=== PATIENT | female | born 1970 | race Caucasian/White ===

== ENCOUNTER → 2017-02-05 | Outpatient (CLI) | payer SELFPAY ==
--- NOTE | 2017-02-05 14:46 | MM ---
Reason for exam: screening (asymptomatic). Baseline mammogram. History: Patient is nulliparous. Family history of breast cancer in maternal grandmother at age 70. Took hormonal contraceptives for 1 year. Physical Findings: Nurse did not find any significant physical abnormalities on exam. MG 3D Screening Mammo W/Cad Bilateral CC and MLO view(s) were taken. The breast tissue is heterogeneously dense. This may lower the sensitivity of mammography. There is no discrete abnormality. These results were verbally communicated with the patient and result sheet given to the patient on 02/05/17. ASSESSMENT: Negative, BI-RAD 1 RECOMMENDATION: Routine screening mammogram of both breasts in 1 year.
== END | disposition home or self-care (01) ==
LOC: RADMAMWWP 13:46
PROVIDERS: ATTEND Family Medicine
DX: Z12.31 Encounter for screening mammogram for malignant neoplasm of breast (principal)
CPT/HCPCS: 77063; G0202

== ENCOUNTER 2017-04-30 06:30 | Day surgery (SDC) | payer BC ==
[2017-04-23 15:32] VITALS: BMI 25.8
[~2017-04-30 06:30] MED LIST: DEXAMETHASONE SOD PHOSPHATE 10 MG/ML 1 ML VIAL IV ONE; LIDOCAINE 1% 20 ML VIAL (10MG/ML) FOR IV START INTRADERMA PRN; MIDAZOLAM 2 MG/2 ML VIAL IV PRN; ONDANSETRON 4 MG/2 ML VIAL IVP ONE; Pre Op ABX Message 1 EACH MISC MISCELLANE ONE; SCOPOLAMINE 1.5MG/72HR PATCH TRANSDERM ONE
[2017-04-30] MEDS: LACTATED RINGERS 1,000 ML IV SCH ×2 (07:08→07:47)
--- NOTE | 2017-04-30 07:42 | P.HPOB ---
History of Present Illness H&P Date: 04/30/17 Chief Complaint: Menorrhagia Patient is a 46-year-old female with heavy painful periods. Symptoms have been going on now for a number of months and have severely limited her lifestyle. The bleeding is so heavy that she is unable to function well when she is on her period and the pain is worse due to clotting. She is requesting treatment for same and as she needs a D&C for tissue sampling will plan to do D&C hysteroscopy and NovaSure. Risks/benefits/alternatives to this procedure were discussed with the patient in detail and all questions are answered for the patient prior to proceeding to the operating room. On physical exam vital signs are stable and afebrile. Heart regular, lungs clear, extremities without pain. Often positive bowel sounds are noted. Pelvic exam is generally speaking unremarkable. Assessment menorrhagia with dysmenorrhea. Plan D&C with hysteroscopy and NovaSure ablation. Past Medical History Additional Past Medical History / Comment(s): abnormal vaginal bleeding and pain during menstrual cycle, seasonal allergies History of Any Multi-Drug Resistant Organisms: None Reported Past Surgical History: No Surgical Hx Reported Additional Past Surgical History / Comment(s): wisdom teeth Past Anesthesia/Blood Transfusion Reactions: Motion Sickness Smoking Status: Never smoker - Past Family History Mother Family Medical History: No Reported History Medications and Allergies Home Medications Medication Instructions Recorded Confirmed Type Albuterol Inhaler [Ventolin Hfa 2 puff INHALATION Q6HR PRN 04/23/17 04/30/17 History Inhaler] Azelastine HCl 2 spray EA NOSTRIL DAILY 04/23/17 04/30/17 History Escitalopram Oxalate [Lexapro] 10 mg PO HS 04/23/17 04/30/17 History Fluticasone Nasal [place] [Flonase 2 spr EA NOSTRIL DAILY 04/23/17 04/30/17 History Nasal [place]] Fluticasone/Vilanterol [Breo 1 inhalation PO Q24HR 04/23/17 04/30/17 History Ellipta 100-25 Mcg Inhaler] Montelukast Sodium [Singulair] 10 mg PO HS 04/23/17 04/30/17 History Pravastatin Sodium [Pravachol] 10 mg PO HS 04/23/17 04/30/17 History Allergies Allergy/AdvReac Type Severity Reaction Status Date / Time No Known Allergies Allergy Verified 04/30/17 06:53 Exam Osteopathic Statement: *. No significant issues noted on an osteopathic structural exam other than those noted in the History and Physical/Consult. - Vital Signs Vital signs: Vital Signs Temp Pulse Resp BP Pulse Ox 04/30/17 06:49 98.1 F 88 18 118/70 100
[2017-04-30] MEDS ORDERED: fentaNYL (PF) 50 MCG/ML 2 ML AMP ONE (07:48)
[2017-04-30] MEDS ORDERED: MIDAZOLAM 2 MG/2 ML VIAL ONE (07:48)
[2017-04-30] MEDS ORDERED: SUCCINYLCHOLINE CHLORIDE 100 MG/5 ML SYR IV ONE (07:48)
[2017-04-30] MEDS ORDERED: LIDOCAINE 1% INJ 10MG/ML (20 ML MDV) ONE (07:48)
[2017-04-30] MEDS ORDERED: PROPOFOL 10 MG/ML 20 ML VIAL IV ONE (07:48)
--- NOTE | 2017-04-30 08:22 | P.OP ---
Date of Procedure: 04/30/17 Preoperative Diagnosis: Menorrhagia Postoperative Diagnosis: Same with polyp Procedure(s) Performed: D&C with hysteroscopy and NovaSure Implants: Anesthesia: TEA Surgeon: Darvin Villatoro Estimated Blood Loss (ml): 3 Pathology: other (Uterine curettings) Condition: stable Disposition: same day Indications for Procedure: Operative Findings: Polyps noted on hysteroscopy believed to be removed with D&C Description of Procedure: Patient was taken to the operating suite where a general anesthetic was found be adequate. She was prepped and draped in the normal sterile fashion and placed in dorsal lithotomy position. Initially a weighted speculum was inserted into the vagina and the anterior lip cervix identified and grasped with an Allis clamp. Once this was accomplished cervix was dilated and uterus was sounded to 10 cm. Camera was then inserted bowels were noted therefore camera was removed and sharp curettings were of the endometrium were obtained. Tissue was all collected and placed on Telfa. This was also sent to pathology. Once this was accomplished NovaSure system was brought in with a length of 5 and a width of 2.6 it was tested and enabled and then was activated and didn't burn for 110 seconds. At the conclusion of the burn system was removed and camera was reinserted with excellent burn noted. Sponge, lap, needle counts were all correct 2. Patient was then taken to the recovery room in stable and satisfactory condition. Plan - Discharge Summary New Discharge Prescriptions: New Ibuprofen [Motrin] 600 mg PO Q6HR PRN #30 tab PRN Reason: Pain No Action Pravastatin Sodium [Pravachol] 10 mg PO HS Montelukast Sodium [Singulair] 10 mg PO HS Escitalopram Oxalate [Lexapro] 10 mg PO HS Fluticasone Nasal [place] [Flonase Nasal [place]] 2 spr EA NOSTRIL DAILY Fluticasone/Vilanterol [Breo Ellipta 100-25 Mcg Inhaler] 1 inhalation PO Q24HR Albuterol Inhaler [Ventolin Hfa Inhaler] 2 puff INHALATION Q6HR PRN PRN Reason: Dyspnea Azelastine HCl 2 spray EA NOSTRIL DAILY Discharge Medication List Albuterol Inhaler [Ventolin Hfa Inhaler] 2 puff INHALATION Q6HR PRN 04/23/17 [ History] Azelastine HCl 2 spray EA NOSTRIL DAILY 04/23/17 [History] Escitalopram Oxalate [Lexapro] 10 mg PO HS 04/23/17 [History] Fluticasone Nasal [place] [Flonase Nasal [place]] 2 spr EA NOSTRIL DAILY 04/23/17 [ History] Fluticasone/Vilanterol [Breo Ellipta 100-25 Mcg Inhaler] 1 inhalation PO Q24HR 04/23/17 [History] Montelukast Sodium [Singulair] 10 mg PO HS 04/23/17 [History] Pravastatin Sodium [Pravachol] 10 mg PO HS 04/23/17 [History] Ibuprofen [Motrin] 600 mg PO Q6HR PRN #30 tab 04/30/17 [Rx] Follow up Appointment(s)/Referral(s): Darvin Villatoro DO [Doctor of Osteopathic Medicine] - 2 Weeks Patient Instructions/Handouts: *Surgery [facility] - Scopalamine Patch Instructions Activity/Diet/Wound Care/Special Instructions: No heavy lifting, limit stairs and driving, and pelvic rest. If any high temperatures, heavy bleeding, or severe pain call my office Discharge Disposition: HOME SELF-CARE
[2017-04-30] MEDS: HYDROmorphone 1 MG/ML 1 ML SYRINGE IVP PRN ×6 (08:25→09:11)
[2017-04-30 08:32] VITALS: TEMP 97.4
[2017-04-30] MEDS ORDERED: KETOROLAC 30 MG/ML 1 ML VIAL IVP ONE (08:37)
[2017-04-30 08:41] VITALS: RESP 16
[2017-04-30] MEDS ORDERED: LACTATED RINGERS 1,000 ML IV ONE (09:12)
[2017-04-30 09:51] VITALS: BP 137/87; PULSE 93
== END 2017-04-30 10:23 | disposition home or self-care (01) ==
LOC: OR 06:30
PROVIDERS: ATTEND Obstetrics & Gynecology
DX: N92.0 Excessive and frequent menstruation with regular cycle (principal); N84.0 Polyp of corpus uteri; J45.909 Unspecified asthma, uncomplicated; F41.9 Anxiety disorder, unspecified; K21.9 Gastro-esophageal reflux disease without esophagitis; Z79.51 Long term (current) use of inhaled steroids; Z79.899 Other long term (current) drug therapy
CPT/HCPCS: 81025; 88305; 58563; J2250; J1100; J2405; J2001; J3010; J1885; J1170; J0330; J2704